=== PATIENT | male | born 1970 | race Caucasian/White ===

== ENCOUNTER 2017-11-21 01:16 | Observation (INO) ==
[2017-11-21] MEDS ORDERED: Naloxone 0.4 MG/ML INJ IVP PRN (03:57)
[2017-11-21] MEDS ORDERED: Acetaminophen 325 MG TABLET PO PRN (03:57)
[2017-11-21] MEDS ORDERED: Gadolinium Contrast Agent (WT Based) IV PRN (04:00)
--- NOTE | 2017-11-21 04:45 | Internal Med History&Physical ---
Date of Encounter: 11/21/17 Time of Encounter: 03:00 Internal Medicine - H&P: HPI Chief complaint: Right arm numbness Admitted From: Home Plans for Post Hospital Care: Home History of present illness: Mr. Toro is a 47 year old male presented to ER for right arm numbness. Patient is generally in good health without significant past medical history. Patient said he starts to have nausea, vomiting, and diarrhea since yesterday. Patient also has right arm numbness. Patient complaint of dizziness, which he described as surrounding spinning. Patient also complaining of blurred vision and sometimes slurred speech. All the symptoms started from yesterday. Patient denies weakness. Patient has bilateral leg numbness as well. Since today, he has intermittent chest pain, which located on mid chest, no radiation. Every episode of chest pain last about 10-15 minutes. Patient was given nitroglycerin, which he said helps with chest pain. Patient has shortness of breath and diaphoresis, but denies nausea related to chest pain. In [place] emergency room, CT head shows possible remote infarct. CTA shows negative for PE. Patient was admitted for further management to rule out CVA and ACS. Past Med Surg Social Fam HX - Past Medical History Medical history: no medical history Psychiatric history: anxiety - Past Surgical History Surgical History: no surgical history - Social History Smoking Status: Current every day smoker Packs per day: 1 pack/week Smokeless Tobacco Status: No Alcohol use: none Drug use: none - Family History Mother Hx Family Cardiac Disorders: Yes (CAD) Father Hx Family Neurologic Disorders: Yes (CVA) Internal Medicine - H&P: Meds No Known Home Drugs 11/20/17 [History] 3 Allergy/AdvReac Type Severity Reaction Status Date / Time No Known Allergies Allergy Verified 11/20/17 22:45 All Systems PM: A 10-system review of systems was performed and is negative for pertinent findings except as documented above in the HPI. - Constitutional Vitals: Temp Pulse Resp BP Pulse Ox 97.7 F 55 16 101/64 94 11/21/17 03:23 11/21/17 03:23 11/21/17 03:23 11/21/17 03:23 11/21/17 03:23 General appearance: Present: A&O X 3, no acute distress, answers questions appropriately - Head Head exam: Present: atraumatic, normocephalic - Eye Eye exam: Present: PERRL, conjuntiva pink, sclera anicteric Pupils: Present: PERRL - Neck Neck exam general surgery: Present: supple, trachea midline. Absent: lymphadenopathy - Respiratory Respiratory exam: Present: chest wall tenderness (Tenderness on mid chest wall) , CTAB. Absent: accessory muscle use, rales, rhonchi, wheezes - Cardiovascular Cardiovascular exam: Present: RRR, +S1, +S2. Absent: diastolic murmur, gallop, rubs, systolic murmur - GI/Abdominal GI/Abdominal exam: Present: normal bowel sounds, soft, no peritoneal signs. Absent: distended, tenderness - Extremities Exam Extremities exam: Present: warm, radial pulses palpable and symmetrical. Absent : calf tenderness, cyanotic, pedal edema - Neurological Exam Neurological exam: Present: CN II-XII intact, oriented X3, no focal deficits. Absent: pronater drift, facial droop, speech deficit - Skin Skin exam: Present: dry, intact Internal Med - H&P Results - EKG Data -: EKG Interpreted by Myself EKG shows normal: sinus rhythm, QRS complexes (Incomplete RBBB) Rate: normal - EKG Data Prior EKG available for review: yes When compared to previous EKG: there is no significant change Interpretation IM: normal EKG - Assessment and plan (1) Chest pain Current Visit: No Status: Acute Assessment and plan: Patient has intermittent chest pain. Need to rule out ACS. However, patient has chest tenderness, chest pain is likely skeletal muscular pain. - Continue cardiac monitoring - Track 3 sets of troponin - Echocardiogram - May consider stress test if negative for above tests. Qualifiers: Chest pain type: intercostal pain Qualified Code(s): R07.82 - Intercostal pain (2) Paresthesia Current Visit: No Status: Acute Assessment and plan: Etiology is undetermined. Need to rule out stroke. Will place patient on cardiac monitoring, echo in a.m, MRI and MRA neck and head in a.m. (3) Vertigo Current Visit: No Status: Acute Assessment and plan: Need to rule out Central vertigo. MRI and MRA in a.m. Continue cardiac monitoring. Start aspirin at this point. - Time Spent With Patient Total time spent is greater than 50% in coordination of care (as documented) at patient's floor/unit and/or counseling patient: 40 min Greater than 35 minutes
[2017-11-21] MEDS: 0.9 % Sodium Chloride 1,000 ML IVC SCH ×2 (05:01→17:01)
[2017-11-21 06:33] LABS: Basophils % 0.1 %; Hematocrit 46.4 % (37.5-50.1); Hemoglobin 15.7 g/dL (12.9-16.9); Immature Granulocytes % 0.4 % (0-4); Lymphocytes # 0.7 K/mcL (0.6-4.6); Lymphocytes % 10.4 %; Mean Corpuscular HGB Conc 33.8 g/dL (31.6-35.5); Mean Corpuscular Hemoglobin 30.4 pg (28.0-33.3); Mean Corpuscular Volume 89.7 fL (83.0-100.0); Mean Platelet Volume 9.9 fL (9.4-12.4); Monocytes # 0.1 K/mcL (0.0-1.3); Monocytes % 1.3 %; Neutrophils # 6.1 K/mcL (1.6-8.9); Platelet Count 299 K/mcL (140-400); Red Blood Count 5.17 M/mcL (4.19-5.50); Red Cell Distribution Width 13.8 % (11.5-14.5); Segmented Neutrophils % 87.8 %
[2017-11-21 06:51] LABS: BUN/Creatinine Ratio 10 (6-26); Blood Urea Nitrogen 7 mg/dL (6-20); Calcium 8.3 mg/dL (8.6-10.3); Carbon Dioxide 25 mEq/L (23-29); Chloride 107 mEq/L (98-107); Chol/HDL Ratio 6.3 (0-4.9); Cholesterol 182 mg/dL (< 200); Glucose 189 mg/dL (70-105); HDL Cholesterol 29 mg/dL (40-59); LDL Cholesterol,Calculated 134 mg/dL (0-99); Osmolality,Calculated 291 (280-300); Potassium 3.9 mEq/L (3.5-5.1); Sodium 139 mEq/L (136-145); Triglycerides 96 mg/dL (< 150); Troponin I < 0.03 ng/mL (< 0.04); eGFR For African Americans > 60 (> 60); eGFR For Non-African Americans > 60 (> 60)
[2017-11-21] MEDS: Aspirin Enteric Coated 81 MG Tablet PO SCH (07:54)
--- NOTE | 2017-11-21 15:19 | Internal Med Progress Note ---
Date of Encounter: 11/21/17 Time of Encounter: 15:16 - Assessment and plan (1) Chest pain Current Visit: No Status: Acute Qualifiers: Chest pain type: intercostal pain Qualified Code(s): R07.82 - Intercostal pain (2) Paresthesia Current Visit: No Status: Acute (3) Vertigo Current Visit: No Status: Acute - Time Spent With Patient Total time spent is greater than 50% in coordination of care (as documented) at patient's floor/unit and/or counseling patient: - Subjective Interval history: Patient was seen and examined earlier this a.m. by hospitalist. Presently patient denies any chest pain numbness or tingling. Cranial nerves II through XII are intact no focal deficits noted. Aspirin and statin continue cardiac monitoring - Constitutional Vitals: Temp Pulse Resp BP Pulse Ox 98.0 F 71 15 130/77 98 11/21/17 11:39 11/21/17 11:39 11/21/17 11:39 11/21/17 11:39 11/21/17 11:39 General appearance: Present: A&O X 3, no acute distress, answers questions appropriately Internal Medicine: Result - Labs CBC & Chem 7: 11/21/17 05:54 11/21/17 05:54 Labs: Short CBC 11/21/17 Range/Units 05:54 WBC 6.9 (4.3-11.1) K/mcL Hgb 15.7 (12.9-16.9) g/dL Hct 46.4 (37.5-50.1) % Plt Count 299 (140-400) K/mcL Neutrophils # 6.1 (1.6-8.9) K/mcL BMP 11/21/17 05:54 Sodium 139 Potassium 3.9 Chloride 107 Carbon Dioxide 25 BUN 7 Creatinine 0.70 Glucose 189 H Calcium 8.3 L Cardiac Enzymes 11/21/17 11/21/17 Range/Units 05:54 11:18 Troponin I < 0.03 < 0.03 (< 0.04) ng/mL - Impressions Impressions Neck MRA 11/21/17 00:00 IMPRESSION: 1. No acute intracranial abnormality. No acute infarct. 2. Minimal chronic microvascular ischemic changes. 3. Chronic lacunar infarct in the right frontal lobe white matter. 4. Minimal focal stenosis involving the right P1 segment. 5. No flow limiting stenosis of the cervical carotid or vertebral arteries. D/ / Frank Kan MD / Frank Kan MD Interpreting Provider: Frank Kan MD Brain MRI 11/21/17 04:00 IMPRESSION: 1. No acute intracranial abnormality. No acute infarct. 2. Minimal chronic microvascular ischemic changes. 3. Chronic lacunar infarct in the right frontal lobe white matter. 4. Minimal focal stenosis involving the right P1 segment. 5. No flow limiting stenosis of the cervical carotid or vertebral arteries. D/ / Frank Kan MD / Frank Kan MD Interpreting Provider: Frank Kan MD Head MRA 11/21/17 04:00 IMPRESSION: 1. No acute intracranial abnormality. No acute infarct. 2. Minimal chronic microvascular ischemic changes. 3. Chronic lacunar infarct in the right frontal lobe white matter. 4. Minimal focal stenosis involving the right P1 segment. 5. No flow limiting stenosis of the cervical carotid or vertebral arteries. D/ / Frank Kan MD / Frank Kan MD Interpreting Provider: Frank Kan MD Echocardiogram 11/21/17 04:02 Impressions: LVEF 60-65%. Normal LV chamber size, wall thickness and function. Normal right ventricular structure and function. Agitated saline injection demonstrates evidence of a PFO with a right to left shunt. No evidence of pulmonary hypertension. No significant valvular dysfunction. Left Ventricular Wall Motion: Rest Echo Findings All wall segments showed normal motion. Findings: Study Quality * Technically adequate exam. ECG Findings * Normal sinus rhythm. Left Ventricle * LVEF 60-65%. * Normal LV chamber size, wall thickness and function. Right Ventricle * Normal right ventricular structure and function. Left Atrium * Normal left atrial size. Right Atrium * Normal right atrial size. Interatrial Septum * Agitated saline injection demosntrates evidence of a PFO with a right to left shunt. Aortic Valve * Trileaflet aortic valve with normal function. * No aortic regurgitation. * No aortic stenosis. Mitral Valve * Normal mitral valve structure and function. * No mitral regurgitation. * No mitral stenosis. Tricuspid Valve * Normal tricuspid valve structure and function. * Trace tricuspid regurgitation. * No evidence of pulmonary hypertension. Pulmonic Valve * Normal pulmonic valve structure and function. * No pulmonic regurgitation. Aorta * Normally sized aortic root. Pericardium * The pericardium appears normal. IVC * Normal IVC dimensions and inspiratory collapse. Pulmonary Artery * Normal visualized portions of the main pulmonary artery. Consult Discharge Plan - Plan Referrals: NONE,PCP [Primary Care Provider] -
[2017-11-22 06:25] VITALS: BP 102/62
[2017-11-22] MEDS ORDERED: Azithromycin 250 MG TABLET PO ONE (08:38)
--- NOTE | 2017-11-22 08:42 | Discharge Summary ---
- NOTES TO OUTPATIENT PROVIDER Notes to Outpatient Provider: CT and MRI did reveal chronic lacunar infarct in the right frontal lobe no acute intracranial abnormality no acute infarct- echo with PFO -aspirin and statin. Follow up with cardiology for PFO. Z pack CT showed inflammation vs infection R upper lobe Date of Encounter: 11/22/17 Time of Encounter: 08:42 - Discharge Diagnosis (1) Chest pain Priority: Primary Status: Inactive Qualifiers: Chest pain type: intercostal pain Qualified Code(s): R07.82 - Intercostal pain (2) Paresthesia Priority: Secondary Status: Inactive (3) Vertigo Priority: Secondary Status: Inactive Hospital course: Mr. Toro is a 47 year old male With no past medical history however he is a current smoker. Patient had been experiencing some nausea vomiting diarrhea as well as some right arm numbness. He also complained of some dizziness which she described as spinning and some slurred speech. All the symptoms started Sunday. He began to experience chest pain off and on yesterday which was mid chest nonradiating chest pain would last proximal [place] 15 minutes he was given nitroglycerin which did ease his pain. CT of his head did show remote infarct MRI was completed with no acute infarct MRA head and neck no flow limiting stenosis of the cervical carotid or vertebral arteries. Echocardiogram with EF of 60-65% normal LV chamber wall thickness and function normal right ventricular structure and function no evidence of pulmonary hypertension agitated saline injection demonstrated evidence of a PFO with a right to left shunt. Patient is neurologically intact with no deficits cranial nerves II through XII are intact he is back to his baseline he was evaluated by PT OT with no services required. Patient has been initiated on aspirin and a statin encouraged patient to stop smoking offered patient medications for smoking cessation requested chantix I did review this case with Dr. Farooq who agrees with plan. I also had a curbside with Dr. Turner concerning aspirin treatment versus Plavix which he recommended continuation of aspirin. We will have patient follow-up with cardiology concerning PFO. CTA of chest did also show tiny tree and bud nodularity in the right upper lung is likely infectious or inflammatory. We will initiate on a Z-Alexandr since patient is a smoker. I will have patient follow- up with primary care as outpatient. I did give patient prescription for aspirin simvastatin and azithromycin and chantix. I advised patient to follow- up with cardiology as well as primary care since this provider knows him best and can adjust medications accordingly. Patient verbalized understanding. He is hemodynamically stable no chest pain neurologically intact he is ready for discharge. - Time Spent with Patient Total time spent providing and/or coordinating discharge services: - Discharge Medications Prescriptions: Aspirin Enteric Coated [Aspirin EC] 81 mg PO DAILY #30 tablet. Azithromycin 250 mg PO DAILY #5 tablet Simvastatin [Zocor] 80 mg PO HS #30 tablet Varenicline Tartrate [Chantix Starting Month ] 1 each PO AD #1 dosepack Home Medications: Aspirin Enteric Coated [Aspirin EC] 81 mg PO DAILY #30 tablet. 11/22/17 [Rx] Azithromycin 250 mg PO DAILY #5 tablet 11/22/17 [Rx] Simvastatin [Zocor] 80 mg PO HS #30 tablet 11/22/17 [Rx] Varenicline Tartrate [Chantix Starting Month ] 1 each PO AD #1 dosepack 11/22 [Rx] Allergies/Adverse Reactions: 3 Allergy/AdvReac Type Severity Reaction Status Date / Time No Known Allergies Allergy Verified 11/20/17 22:45 Date of admission: 11/21/17 02:48 Primary care physician: PCP NONE Consults: 11/21/17 08:55 Consult to Physical Therapy [CONS] Routine Comment: Evaluate, develop and implement POC Reason for Consult: CVA R/O Does patient have active BEDREST order?: No Is patient medically & hemodynamically stable?: Yes Patient assessed for mobility or mobilized this visit?: Yes Discharging clinician: Perla Madera Anticipated date of discharge: 11/22/17 - Constitutional Vitals: Temp Pulse Resp BP Pulse Ox 98.1 F 66 16 102/62 98 11/22/17 06:24 11/22/17 06:24 11/22/17 06:24 11/22/17 06:24 11/22/17 06:24 General appearance: Present: A&O X 3, no acute distress, answers questions appropriately - Head Head exam: Present: atraumatic, normocephalic - Eye Eye exam: Present: PERRL, conjuntiva pink, sclera anicteric Pupils: Present: PERRL - Neck Neck exam general surgery: Present: supple, trachea midline. Absent: lymphadenopathy - Respiratory Respiratory exam: Present: CTAB. Absent: accessory muscle use, rales, rhonchi, wheezes - Cardiovascular Cardiovascular exam: Present: RRR, +S1, +S2. Absent: diastolic murmur, gallop, rubs, systolic murmur - GI/Abdominal GI/Abdominal exam: Present: normal bowel sounds, soft, no peritoneal signs. Absent: distended, tenderness - Extremities Exam Extremities exam: Present: warm, radial pulses palpable and symmetrical. Absent : calf tenderness, cyanotic, pedal edema - Neurological Exam Neurological exam: Present: CN II-XII intact, oriented X3, no focal deficits. Absent: pronater drift, facial droop, speech deficit - Skin Skin exam: Present: dry, intact - Patient Status Disposition: Home, Self-Care Condition: Good Functional capacity at discharge: independent ambulation - Discharge Instructions Follow Up With: Archie Walton MD [Partnered Physician] - (Our offices will call you with an appointment time and date. ) NONE,PCP [Primary Care Provider] - Kevin Fermin MD [Partnered Physician] - 11/30/17 7:45 am (We will mail out a packet, please fill out all information. Bring Medication list, construction driver liscence, and insurance cards to appointment. ) - Diet and Activity Activity: resume usual activities as tolerated Diet: regular diet
[2017-11-22] MEDS: Aspirin Enteric Coated 81 MG Tablet PO SCH (08:59)
== END 2017-11-22 11:29 | disposition home or self-care (01) ==
LOC: 3BNU
PROVIDERS: ADMIT Internal Medicine; ATTEND Family Medicine